=== PATIENT | female | born 1930 | race Caucasian/White ===

== ENCOUNTER 2018-06-22 14:47 | Emergency (ER) | payer MEDICARE, BC ==
--- NOTE | 2018-06-22 15:16 | Emergency Department Record ---
History of Present Illness - General Chief complaint: Flank Pain Stated complaint: LT SIDE FLANK PAIN Time Seen by Provider: 06/22/18 15:09 Source: Patient, RN notes reviewed Mode of Arrival: Ambulatory - History of Present Illness Initial comments: fell three weeks ago and landed on her left arm and she has left lumbar pain and left rib pain and left flank pain and she recently had a UTI and yesterday say Altagracia and started on flagyl for possible diverticulitis. No fever chilles or cough. Never smoked. Patient states no pain when laying still Onset/Timin -: Week(s) Location: LLQ Radiation: L flank Severity: Moderate Severity scale (1-10): 7 Consistency: Constant Improves with: None Worsens with: Movement Associated Symptoms: Denies other symptoms - Related Data Home Medications Medication Instructions Recorded Confirmed Last Taken Metronidazole 500 mg PO DAILY 06/22/18 06/22/18 06/21/18 Previous Rx's Medication Instructions Recorded Fluoxetine HCl [Prozac] 20 mg PO DAILY 06/03/17 Tramadol HCl [Ultram] 50 mg PO Q8H #9 tab 06/22/18 Allergies Allergy/AdvReac Type Severity Reaction Status Date / Time No Known Drug Allergies Allergy Verified 06/22/18 14:49 Travel Screening - Travel/Exposure Within Last 30 Days Have you traveled within the last 30 days?: No - Travel/Exposure Within Last Year Have you traveled outside the [place] in the last year?: No - Additonal Travel Details Have you been exposed to anyone with a communicable illness?: No - Travel Symptoms Symptom Screening: None Review of Systems Reviewed: No additional complaints except as noted below Constitutional: Reports: As per HPI. Denies: Chills, Fever, Malaise, Night sweats, Weakness, Weight change Eyes: Reports: As per HPI. Denies: Eye discharge, Eye pain, Photophobia, Vision change ENT: Reports: As per HPI. Denies: Congestion, Dental pain, Ear pain, Epistaxis , Hearing loss, Throat pain Respiratory: Reports: As per HPI. Denies: Cough, Dyspnea, Hemoptysis, Stridor, Wheezes Cardiovascular: Reports: As per HPI. Denies: Arrhythmia, Chest pain, Dyspnea on exertion, Edema, Murmurs, Orthopnea, Palpitations, Paroxysmal nocturnal dyspnea, Rheumatic Fever, Syncope Endocrine: Reports: As per HPI. Denies: Fatigue, Heat or cold intolerance, Polydipsia, Polyuria Gastrointestinal: Reports: As per HPI. Denies: Abdominal pain, Constipation, Diarrhea, Hematemesis, Hematochezia, Melena, Nausea, Vomiting Genitourinary: Reports: As per HPI. Denies: Abnormal menses, Discharge, Dyspareunia, Dysuria, Frequency, Hematuria, Incontinence, Retention, Urgency Musculoskeletal: Reports: As per HPI. Denies: Arthralgia, Back pain, Gout, Joint swelling, Myalgia, Neck pain Skin: Reports: As per HPI. Denies: Bruising, Change in color, Change in hair/ nails, Lesions, Pruritus, Rash Neurological: Reports: As per HPI. Denies: Abnormal gait, Confusion, Headache, Numbness, Paresthesias, Seizure, Tingling, Tremors, Vertigo, Weakness Psychiatric: Reports: As per HPI. Denies: Anxiety, Auditory hallucinations, Depression, Homicidal thoughts, Suicidal thoughts, Visual hallucinations Hematological/Lymphatic: Reports: As per HPI. Denies: Anemia, Blood Clots, Easy bleeding, Easy bruising, Swollen glands Past Medical History - SOCIAL HISTORY Smoking Status: Never smoker Alcohol Use: None Drug Use: None - RESPIRATORY Hx Respiratory Disorders: No - CARDIOVASCULAR Hx Cardio Disorders: Yes Hx Hypertension: Yes - NEURO Hx Neuro Disorders: No - GI Hx GI Disorders: Yes Hx Abdominal Pain: No Hx Diverticulitis: Yes (last 2 weeks ago) Hx GI Bleed: No Hx Reflux: No Hx Rectal Bleeding: No Hx Ulcer: No Hx Wt Loss/Wt Gain: No Hx of Polyps: No Comment:: no normal bowel movement/ small amounts - Hx Genitourinary Disorders: No - ENDOCRINE Hx Endocrine Disorders: Yes Hx Diabetes: No Hx Thyroid Disease: Yes - MUSCULOSKELETAL Hx Musculoskeletal Disorders: Yes Hx Arthritis: Yes - PSYCH Hx Psych Problems: No - HEMATOLOGY/ONCOLOGY Hx Hematology/Oncology Disorders: No Hx Anemia: No Hx Blood Disorders: No Hx Cancer: No Family Medical History Any Significant Family History?: Yes Hx Cancer: Mother Hx Heart Disease: Father, Brother/Sister, Grandparents Hx HTN: Brother/Sister Physical Exam - General General Appearance: Alert, Oriented x3, Cooperative, No acute distress - Head Head exam: Normal inspection - Eye Eye exam: Normal appearance, PERRL Pupils: Normal accommodation - ENT ENT exam: Normal exam, Mucous membranes moist, Normal external ear exam, Normal orophraynx, TM's normal bilaterally Ear exam: Normal external inspection. negative: External canal tenderness Nasal Exam: Normal inspection. negative: Discharge, Sinus tenderness Mouth exam: Normal external inspection, Tongue normal Teeth exam: Normal inspection. negative: Dental caries Throat exam: Normal inspection. negative: Tonsillar erythema, Tonsillar exudate - Neck Neck exam: Normal inspection, Full ROM. negative: Tenderness - Respiratory Respiratory exam: Normal lung sounds bilaterally. negative: Respiratory distress - Cardiovascular Cardiovascular Exam: Regular rate, Normal rhythm, Normal heart sounds, Other ( left chest wall pain worse with palpation) - GI/Abdominal GI/Abdominal exam: Soft, Normal bowel sounds. negative: Tenderness - Rectal Rectal exam: Deferred - exam: Deferred - Extremities Extremities exam: Normal inspection, Full ROM, Normal capillary refill. negative: Tenderness - Back Back exam: Reports: Normal inspection, Full ROM, Tenderness (lumbar spine pain on palpation). Denies: Muscle spasm, Rash noted - Neurological Neurological exam: Alert, Normal gait, Oriented X3, Reflexes normal - Psychiatric Psychiatric exam: Normal affect, Normal mood - Skin Skin exam: Dry, Intact, Normal color, Warm Course Vital Signs 06/22/18 14:59 Temperature 98.4 F Pulse Rate 80 Respiratory 20 Rate Blood Pressure 143/64 Pulse Ox 97 Medical Decision Making - Data Complexity MDM Data: Labs Ordered and/or Reviewed, X-Ray Ordered and/or Reviewed (chest neg and ribs are neg per my eyes and LS spine DJD) - Lab Data Result diagrams: 06/22/18 15:26 06/22/18 15:26 Disposition Clinical Impression: Flank pain Contusion of back wall of thorax Qualifiers: Encounter type: initial encounter Laterality: left Qualified Code(s): S20.222A - Contusion of left back wall of thorax, initial encounter Lumbar contusion Qualifiers: Encounter type: initial encounter Qualified Code(s): S30.0XXA - Contusion of lower back and pelvis, initial encounter Condition: (1) Good Instructions: Contusion in Adults (ED) Additional Instructions: follow up with Dr. Nava next week tylenol two pills three times a day use utram one half pill wood 8 hours for severe pain Prescriptions: Tramadol HCl [Ultram] 50 mg PO Q8H #9 tab Forms: Patient Portal Access Time of Disposition: 16:37 Quality - Quality Measures Quality Measures: N/A - Blood Pressure Screening Does Patient Have Any of the Following: No, Active Dx of HTN Blood Pressure Classification: Hypertensive Reading Systolic Measurement: 143 Diastolic Measurement: 64 Screening for High Blood Pressure: Patient Exclusion, Hx of HTN [[id number]]
[2018-06-22 15:38] LABS: BASO % 0.4 % (0-6); EOS % 1.3 % (0-6); GRAN % 65.5 % (47-80); HEMATOCRIT 33.1 % (35.0-47.0); HEMOGLOBIN 11.3 gm/dl (11.6-16.0); LYMPH % 19.3 % (16-45); MEAN CELL VOLUME 95.9 fl (81-97); MEAN CORPUSCULAR HGB CONC 34.1 g/dl (32-36); MEAN PLATELET VOLUME 9.8 fl (7.4-10.4); MONO % 13.5 % (0-9); PLATELET COUNT 284 K/uL (130-400); RED BLOOD COUNT 3.45 M/uL (3.80-5.40); RED CELL DISTRIBUTION WIDTH 11.3 % (11.5-14.5); WHITE BLOOD COUNT W/O DIFF 6.8 K/uL (4.2-12.2)
[2018-06-22 15:42] LABS: MEAN CORPUSCULAR HEMOGLOBIN 32.7 pg (27-33)
[2018-06-22 15:52] LABS: CREATININE 1.3 mg/dL (0.5-0.9)
--- NOTE | 2018-06-26 14:38 | RADIOLOGY REPORT ---
EXAM: CHEST 2 VIEWS HISTORY: INJURY. TECHNIQUE: Two views of the chest were performed. COMPARISON: 09/18/2015. FINDINGS: Heart size is normal. Lungs are hyperinflated. No infiltrate or pleural effusion. Osseous structures demonstrate multilevel degenerative change. IMPRESSION: HYPERINFLATED LUNGS. NO ACUTE PROCESS. JOB NUMBER: [id number] [facility]
--- NOTE | 2018-06-26 14:41 | RADIOLOGY REPORT ---
EXAM: LUMBAR SPINE / AP LAT HISTORY: BACK PAIN. TECHNIQUE: AP and lateral views of the lumbar spine were performed. FINDINGS: There is normal vertebral body height. There is grade 1 anterolisthesis of L4 in respect to L5. There is disc space narrowing at L2-3. There is a mild scoliotic curvature. There is atherosclerotic change of the abdominal aorta. IMPRESSION: 1. SCOLIOTIC CURVATURE OF THE LUMBAR SPINE. NO COMPRESSION FRACTURE DEFORMITY. DEGENERATIVE CHANGE AT L2-3. 2. MINIMAL ANTEROLISTHESIS OF L4 IN RESPECT TO L5. JOB NUMBER: [id number] [facility]
--- NOTE | 2018-06-26 14:43 | RADIOLOGY REPORT ---
EXAM: RIBS, LEFT 2 VIEWS HISTORY: PAIN. TECHNIQUE: Single PA view of the chest. Multiple views of the left ribcage were performed. FINDINGS: Left hemithorax is clear. No rib fracture deformity. Degenerative change of the left shoulder girdle. IMPRESSION: NO RIB FRACTURE DEFORMITY. NO PNEUMOTHORAX. DEGENERATIVE CHANGE OF THE LEFT SHOULDER GIRDLE. JOB NUMBER: [id number] [facility]
== END 2018-06-22 16:51 | disposition home or self-care (01) ==
LOC: ER 14:47
DX: S20.222A Contusion of left back wall of thorax, initial encounter (principal); S30.0XXA Contusion of lower back and pelvis, initial encounter; I10 Essential (primary) hypertension; R10.9 Unspecified abdominal pain; W07.XXXA Fall from chair, initial encounter; Z91.81 History of falling; Y93.9 Activity, unspecified; Y92.9 Unspecified place or not applicable; Y99.9 Unspecified external cause status
CPT/HCPCS: 71046; 72100; 80048; 85025; 99283

== ENCOUNTER 2019-10-04 16:44 | Emergency (ER) | payer MEDICARE, BC ==
--- NOTE | 2019-10-04 17:11 | Emergency Department Record ---
History of Present Illness - General Chief complaint: Extremity Problem Stated complaint: RT LEG WOUND Time Seen by Provider: 10/04/19 17:10 Source: Patient, RN notes reviewed Mode of Arrival: Ambulatory - History of Present Illness Onset/Timin -: Days(s) Location: Right, Lower Leg Radiation: Proximal Severity scale (1-10): 8 Quality: Aching Consistency: Constant, Intermittent Improves with: Rest Worsens with: Walking, Weight bearing - Related Data Home Medications Medication Instructions Recorded Confirmed Last Taken Mupirocin [Bactroban] 1 apply TP TID 10/04/19 10/04/19 1 Day Ago ~10/03/19 Previous Rx's Medication Instructions Recorded Tramadol HCl [Ultram] 50 mg PO Q8H #9 tab 06/22/18 Doxycycline Hyclate 100 mg PO BID #20 cap 10/04/19 Levofloxacin [Levaquin] 500 mg PO DAILY #10 tablet 10/04/19 Allergies Allergy/AdvReac Type Severity Reaction Status Date / Time No Known Drug Allergies Allergy Verified 10/04/19 17:00 Travel Screening - Travel/Exposure Within Last 30 Days Have you traveled within the last 30 days?: No - Travel/Exposure Within Last Year Have you traveled outside the [place] in the last year?: No Past Medical History - SOCIAL HISTORY Smoking Status: Never smoker Alcohol Use: None Drug Use: None - RESPIRATORY Hx Respiratory Disorders: No - CARDIOVASCULAR Hx Cardio Disorders: Yes Hx Hypertension: Yes - NEURO Hx Neuro Disorders: No - GI Hx GI Disorders: Yes Hx Abdominal Pain: No Hx Diverticulitis: Yes (last 2 weeks ago) Hx GI Bleed: No Hx Reflux: No Hx Rectal Bleeding: No Hx Ulcer: No Hx Wt Loss/Wt Gain: No Hx of Polyps: No Comment:: no normal bowel movement/ small amounts - Hx Genitourinary Disorders: No - ENDOCRINE Hx Endocrine Disorders: Yes Hx Diabetes: No Hx Thyroid Disease: No - MUSCULOSKELETAL Hx Musculoskeletal Disorders: Yes Hx Arthritis: Yes - PSYCH Hx Psych Problems: No - HEMATOLOGY/ONCOLOGY Hx Hematology/Oncology Disorders: No Hx Anemia: No Hx Blood Disorders: No Hx Cancer: No Family Medical History Any Significant Family History?: Yes Hx Cancer: Mother Hx Heart Disease: Father, Brother/Sister, Grandparents Hx HTN: Brother/Sister Course Vital Signs 10/04/19 16:47 Temperature 98.2 F Pulse Rate 83 Respiratory 20 Rate Blood Pressure 120/68 Pulse Ox 96 Medical Decision Making - Lab Data Result diagrams: 10/04/19 17:27 10/04/19 17:27 Disposition Clinical Impression: Cellulitis Qualifiers: Site of cellulitis: extremity Site of cellulitis of extremity: lower extremity Laterality: right Qualified Code(s): L03.115 - Cellulitis of right lower limb Disposition: Home, Self-Care Condition: (1) Good Instructions: Cellulitis (ED) Additional Instructions: elevate leg follow up on wednesday in the office in the morning Prescriptions: Doxycycline Hyclate 100 mg PO BID #20 cap Levofloxacin [Levaquin] 500 mg PO DAILY #10 tablet Forms: Patient Portal Access Time of Disposition: 18:43 Quality - Quality Measures Quality Measures: N/A - Blood Pressure Screening Does Patient Have Any of the Following: No, Active Dx of HTN Blood Pressure Classification: Pre-Hypertensive BP Reading Systolic Measurement: 120 Diastolic Measurement: 68 Screening for High Blood Pressure: Patient Exclusion, Hx of HTN [G9744]
[2019-10-04] MEDS ORDERED: LEVOFLOXACIN 500MG IVPB 500 MG/100 ML BAG IVPB ONE (17:15)
[2019-10-04 17:37] LABS: ABSOLUTE NEUTROPHIL COUNT 15.29; HEMATOCRIT 32.7 % (35.0-47.0); HEMOGLOBIN 10.4 gm/dl (11.6-16.0); MEAN CELL VOLUME 103.8 fl (81-97); MEAN CORPUSCULAR HGB CONC 31.8 g/dl (32-36); PLATELET COUNT 236 K/uL (130-400); RED BLOOD COUNT 3.15 M/uL (3.80-5.40); RED CELL DISTRIBUTION WIDTH 12.5 % (11.5-14.5); WHITE BLOOD COUNT W/O DIFF 16.9 K/uL (4.2-12.2)
[2019-10-04 17:50] LABS: CREATININE 1.5 mg/dL (0.5-0.9)
[2019-10-04] MEDS ORDERED: DOXYCYCLINE HYCLATE 100 MG CAPSULE PO ONE (18:37)
== END 2019-10-04 19:08 | disposition home or self-care (01) ==
LOC: ER 16:44
DX: L03.115 Cellulitis of right lower limb (principal)
CPT/HCPCS: 80048; 85027; 96365; 99284; J1956

== ENCOUNTER 2019-10-27 13:50 | Emergency (ER) | payer MEDICARE, BC ==
--- NOTE | 2019-10-27 14:20 | Emergency Department Record ---
History of Present Illness - General Chief complaint: Swelling of legs Stated complaint: SWELLING IN LEG Time Seen by Provider: 10/27/19 14:02 Source: Patient, Family Mode of Arrival: Wheelchair Limitations: No limitations - History of Present Illness Initial comments: The patient is here due to chronic R lower leg swelling with mild redness for 5 weeks. The symptoms seem to be coming and going and fairly mild. She has been on multiple oral Abx's for it after being admitted to the hospital at [facility]. Since the swelling and redness to the R lower leg and top of the R foot has been waxing and waning. There is no new leg or foot pain, fever, chills, or trauma. The patient also has been coughing for months per the patient's daughter. Complaint: Extremity swelling Onset/Timin -: Week(s) Location: Right, Lower Leg History of Same: No Worsens with: Exertion, Walking, Weight bearing Associated Symptoms: Denies other symptoms - Related Data Home Medications Medication Instructions Recorded Confirmed Last Taken Allopurinol 100 mg PO DAILY 10/27/19 10/27/19 Unknown Clindamycin HCl 300 mg PO TID 10/27/19 10/27/19 Unknown Previous Rx's Medication Instructions Recorded Tramadol HCl [Ultram] 50 mg PO Q8H #9 tab 06/22/18 Allergies Allergy/AdvReac Type Severity Reaction Status Date / Time No Known Drug Allergies Allergy Verified 10/27/19 14:04 Travel Screening - Travel/Exposure Within Last 30 Days Have you traveled within the last 30 days?: No Review of Systems Constitutional: Reports: Malaise. Denies: Chills, Fever Eyes: Denies: Eye discharge ENT: Denies: Congestion Respiratory: Reports: Cough. Denies: Dyspnea Cardiovascular: Denies: Chest pain Endocrine: Reports: Fatigue Gastrointestinal: Denies: Nausea Genitourinary: Denies: Dysuria Musculoskeletal: Denies: Arthralgia Skin: Denies: Bruising Past Medical History - SOCIAL HISTORY Smoking Status: Never smoker Alcohol Use: None Drug Use: None - RESPIRATORY Hx Respiratory Disorders: No - CARDIOVASCULAR Hx Cardio Disorders: Yes Hx Hypertension: Yes - NEURO Hx Neuro Disorders: No - GI Hx GI Disorders: Yes Hx Diverticulitis: Yes - Hx Genitourinary Disorders: No - ENDOCRINE Hx Endocrine Disorders: No - MUSCULOSKELETAL Hx Musculoskeletal Disorders: Yes Hx Arthritis: Yes - PSYCH Hx Psych Problems: No - HEMATOLOGY/ONCOLOGY Hx Hematology/Oncology Disorders: No Hx Anemia: No Hx Blood Disorders: No Hx Cancer: No Family Medical History Any Significant Family History?: Yes Hx Cancer: Mother Hx Heart Disease: Father, Brother/Sister, Grandparents Hx HTN: Brother/Sister Physical Exam - General General Appearance: Alert, Oriented x3, Cooperative, No acute distress - Head Head exam: Atraumatic, Normocephalic, Normal inspection - Eye Eye exam: Normal appearance, PERRL - Neck Neck exam: Normal inspection, Full ROM. negative: Tenderness - Respiratory Respiratory exam: Normal lung sounds bilaterally. negative: Respiratory distress - Cardiovascular Cardiovascular Exam: Regular rate, Normal rhythm, Normal heart sounds - GI/Abdominal GI/Abdominal exam: Soft, Normal bowel sounds. negative: Tenderness - Extremities Extremities exam: Full ROM, Pedal edema (2+ R leg and 1+ L leg. ). negative: Normal inspection (There is very slight erythema to the distal R lower leg and anterior ankle and proximal foot. There is no tenderness or warmth.), Joint swelling (There is no pain with ROM of the R ankle and foot.), Tenderness Image of Full Body: 1 - Area of slight erythema with no warmth or tenderness and slight edema. - Neurological Neurological exam: Alert. negative: Motor sensory deficit Course Vital Signs 10/27/19 13:58 Temperature 97.8 F Pulse Rate 82 Respiratory 18 Rate Blood Pressure 142/76 Pulse Ox 98 - Reevaluation(s) Reevaluation #1: The patient is doing very well at this time. She is resting comfortably with no new issues. I did discuss with the patient and daughter that I feel the cause of her symptoms are due to edema of the R lower leg and am not convinced she has any acute infection. We will keep the patient on the same medicines and add compression stockings during the day and have her see her PCP next week. 10/27/19 15:40 Reevaluation #2: I did also discuss the slightly low sodium with the patient and family and the need to have that rechecked next week. We have made multiple attempts to contact the patient's PCP but have not been successful. 10/27/19 15:48 Medical Decision Making - Data Complexity MDM Data: Labs Ordered and/or Reviewed, X-Ray Ordered and/or Reviewed - Lab Data Result diagrams: 10/27/19 14:20 10/27/19 14:20 - Radiology Data Radiology results: Report reviewed (CXR: Neg for any acute changes. R leg Doppler: Neg for DVT.) Disposition Disposition: Discharge Clinical Impression: Peripheral edema Disposition: Home, Self-Care Condition: (2) Stable Instructions: Leg Edema (ED) Additional Instructions: Please continue your regular medicines and please see your family doctor next week for recheck and to have your blood sodium rechecked. Wear the compression stockings during the day and off at night. Return to the ER for any worsening issues, pain, fever, or any trouble breathing. Forms: Patient Portal Access Quality - Quality Measures Quality Measures: N/A - Blood Pressure Screening View Details: Yes Does Patient Have Any of the Following: Active Dx of HTN Blood Pressure Classification: Hypertensive Reading Systolic Measurement: 142 Diastolic Measurement: 76 Screening for High Blood Pressure: Patient Exclusion, Hx of HTN [G9744]
[2019-10-27 14:35] LABS: ABSOLUTE NEUTROPHIL COUNT 4.91; HEMATOCRIT 34.7 % (35.0-47.0); HEMOGLOBIN 11.4 gm/dl (11.6-16.0); MEAN CELL VOLUME 97.7 fl (81-97); MEAN CORPUSCULAR HEMOGLOBIN 32.1 pg (27-33); MEAN CORPUSCULAR HGB CONC 32.9 g/dl (32-36); MEAN PLATELET VOLUME 9.7 fl (7.4-10.4); PLATELET COUNT 326 K/uL (130-400); RED BLOOD COUNT 3.55 M/uL (3.80-5.40); WHITE BLOOD COUNT W/O DIFF 7.1 K/uL (4.2-12.2)
[2019-10-27 14:45] LABS: PLATELET ESTIMATE NORMAL (NORMAL)
[2019-10-27 14:48] LABS: BILIRUBIN,TOTAL 0.4 mg/dL (0.2-1.0)
[2019-10-27 14:53] LABS: ALB/GLOB RATIO 1.1 (1.1-1.8); ALBUMIN 3.6 g/dL (4.0-5.0); C-REACTIVE PROTEIN 0.1 mg/dL (<0.5)
--- NOTE | 2019-10-27 15:28 | ULTRASOUND REPORT ---
EXAMINATION: Right Lower Extremity Venous Duplex Doppler Ultrasound EXAM DATE: 10/27/2019 3:08 PM TECHNIQUE: Real-time B-mode imaging with and without compression was used to evaluate the right lowe r extremity for deep venous thrombosis (DVT). Duplex Doppler with color and spectral Doppler was use d. INDICATION: R leg swelling COMPARISON: 01/25/2017 bilateral lower extremity ultrasound FINDINGS: Right Common Femoral Vein: No DVT. Right Femoral Vein: No DVT. Right Popliteal Vein: No DVT. Right Posterior Tibial Veins: No DVT. Right Peroneal Veins: No DVT. Right proximal Great Saphenous Vein: No thrombus. Duplex Doppler: Spectral Doppler waveforms show normal respiratory phasicity in the common femoral vein. Additional Findings: None. IMPRESSION: There is no deep venous thrombosis in the visualized deep veins of the right lower extremity. Dictated by: Graham Curtis MD on 10/27/2019 3:25 PM. .
--- NOTE | 2019-10-27 15:33 | RADIOLOGY REPORT ---
EXAMINATION: Two View Chest Radiographs EXAM DATE: 10/27/2019 3:08 PM TECHNIQUE: Frontal and lateral views INDICATION: cough COMPARISON: 10/14/2019 ENCOUNTER: Not applicable FINDINGS: The heart and mediastinal contour are stable. There is streak-like opacity at the left costophrenic s ulcus which is stable. Improved aeration of the right lower lung. No new lung consolidation or pleura l effusions are present. No pneumothorax. Osseous structures and soft tissue markings appear unchange d. IMPRESSION: Persistent left basilar atelectasis versus scarring. No pulmonary consolidation to indicate a segment al pneumonia. Dictated by: Horacio Birmingham DO on 10/27/2019 3:29 PM. .
== END 2019-10-27 16:18 | disposition home or self-care (01) ==
LOC: ER 13:50
DX: R60.0 Localized edema (principal); R05 Cough; I10 Essential (primary) hypertension
CPT/HCPCS: 71046; 80053; 85027; 86140; 99284